=== PATIENT | male | born 1995 | race Asian ===

== ENCOUNTER 2021-01-05 22:05 | Emergency (ER) | payer OTHER ==
[~2021-01-05] VITALS: Ht 180.3 cm; Wt 75.7 kg
[2021-01-05 22:42] VITALS: BP 130/102
--- NOTE | 2021-01-05 22:50 | NUR ---
TO BED AMBULATORY
--- NOTE | 2021-01-05 22:54 | NUR ---
ANK[facility] LADD AT BEDSIDE
--- NOTE | 2021-01-05 22:55 | NUR ---
PT. IS A 25 Y/O MALE THAT CAME INTO ED WITH C/O OF LEFT EYE BROW INFECTION. PT. STATES IT STARTED SUNDAY. UPON ASSESSMENT, PT. LEFT EYEBROW IS SWOLLEN WITH REDNESS WITHOUT ANY DISCHARGE. PT. STATES HE HAS BEEN USING SALINE AT HOME AND ADVIL FOR PAIN. PT. DENIES PAIN AT THIS TIME. AAOX4; DENIES N/V/D/FEVER.
[2021-01-05] MEDS ORDERED: CLIN300C52 PO (23:00)
[2021-01-05] MEDS ORDERED: CLINDAMYCIN 150 MG CAP PO ONE (23:00)
[2021-01-05 23:08] VITALS: BP 130/102
--- NOTE | 2021-01-05 23:08 | NUR ---
Patient discharged with v/s stable. Written and verbal after care instructions given and explained. Patient alert, oriented and verbalized understanding of instructions. Ambulatory with steady gait. All questions addressed prior to discharge. ID band removed. Patient advised to follow up with PMD. Rx of CLINDAMYCIN HCL given. Patient educated on indication of medication including possible reaction and side effects. Opportunity to ask questions provided and answered.
== END 2021-01-05 23:08 | disposition home or self-care (01) ==
LOC: MED 22:05
DX: L03.213 Periorbital cellulitis (principal)
CPT/HCPCS: 99283

== ENCOUNTER 2022-05-11 06:15 | Emergency (ER) | payer OTHER ==
[~2022-05-11] VITALS: Ht 180.3 cm; Wt 43.5 kg
[~2022-05-11 06:15] MED LIST: CLIN300C52 PO
[2022-05-11 06:24] VITALS: BP 131/95
--- NOTE | 2022-05-11 06:24 | NUR ---
Patient BIB by [facility]. C/O pre-book x today. Place patient on chair C.
--- NOTE | 2022-05-11 06:26 | NUR ---
Dr. Blackmon examining patient.
[2022-05-11 06:39] VITALS: BP 131/95
--- NOTE | 2022-05-11 06:39 | NUR ---
Patient D/C to custody.
== END 2022-05-11 06:39 ==
LOC: MED 06:15
DX: F10.129 Alcohol abuse with intoxication, unspecified (principal); Y90.9 Presence of alcohol in blood, level not specified
CPT/HCPCS: 99283